=== PATIENT | male | born 1980 | race Caucasian/White ===

== ENCOUNTER → 2016-12-19 | Outpatient (REF) | LOC: ZLAB.WCH 18:11 | DX: Z01.89 Encounter for other specified special examinations (principal) ==

== ENCOUNTER → 2017-03-07 | Outpatient (REF) | LOC: ZLAB.WCH 11:05 | DX: Z01.89 Encounter for other specified special examinations (principal) ==

== ENCOUNTER → 2018-04-03 | Outpatient (REF) | LOC: ZLAB.WCH 16:11 | DX: Z01.89 Encounter for other specified special examinations (principal) ==

== ENCOUNTER → 2018-04-29 | Outpatient (REF) | LOC: ZLAB.WCH 18:22 | DX: Z01.89 Encounter for other specified special examinations (principal) | CPT/HCPCS: G0103 ==

== ENCOUNTER → 2020-09-13 | Outpatient (CLI) | payer BC ==
[~2020-09-13] MED LIST: ALEVE 220MG220 MG PO; KLONOPIN 1MG1 MG PO; PROTONIX 40MG T40 MG PO; PROZAC 10MG10 MG PO
== END ==
LOC: MHCPAIN 08:45
DX: M47.817 Spondylosis without myelopathy or radiculopathy, lumbosacral region (principal); M54.16 Radiculopathy, lumbar region; M96.1 Postlaminectomy syndrome, not elsewhere classified; F17.210 Nicotine dependence, cigarettes, uncomplicated; G89.29 Other chronic pain
CPT/HCPCS: G0463

== ENCOUNTER → 2020-09-16 | Outpatient (CLI) | payer BC | LOC: MHCPAIN 07:44 | DX: M47.817 Spondylosis without myelopathy or radiculopathy, lumbosacral region (principal); M54.17 Radiculopathy, lumbosacral region | CPT/HCPCS: J1100; Q9967 ==

== ENCOUNTER 2020-11-17 09:42 | Inpatient (IN) | payer SELFPAY ==
[~2020-11-17] VITALS: Ht 7.6 cm; Wt 82.3 kg
[2020-11-17] MEDS ORDERED: PROTONIX 40MG T40 MG PO (09:58)
[2020-11-17] MEDS ORDERED: PROZAC 10MG10 MG PO (09:58)
[2020-11-17] MEDS ORDERED: KLONOPIN 1MG1 MG PO (09:58)
[2020-11-17] MEDS ORDERED: ALEVE 220MG220 MG PO (09:59)
[2020-11-17 10:55] LABS: BASO % 0.6 % (0.0-2.0); EOS # 0.3 (0.0-0.7); GRAN # 3.6 (1.4-6.5); GRAN % 56.4 % (42.2-75.2); HEMATOCRIT 45.6 % (42.0-52.0); HEMOGLOBIN 15.8 g/dl (13.5-18.0); LYMPH # 2.1 (1.2-3.4); MEAN CELL VOLUME 88 fl (80.0-100.0); MEAN CORPUSCULAR HEMOGLOBIN 30 pg (27.0-31.0); MEAN CORPUSCULAR HGB CONC 35 g/dl (33.0-37.0); MEAN PLATELET VOLUME 9.4 fl (7.4-10.4); MONO # 0.4 (0.1-0.6); MONO % 6.7 % (1.7-9.3); PLATELET COUNT 247 K/mm3 (130-400); RED BLOOD COUNT 5.19 M/mm3 (4.20-5.60); REDCELL DISTRIBUTION WIDTH-CV 12.3 % (11.5-14.5)
[2020-11-17 11:10] LABS: ALANINE AMINOTRANSFERASE 40 U/L (4-49); ALBUMIN 4.8 gm/dL (3.5-5.0); ALKALINE PHOSPHATASE 65 U/L (50-136); ANION GAP 11 mmol/L (7-16); AST,SGOT 32 U/L (15-37); BILIRUBIN,TOTAL 0.4 mg/dL (0.0-1.0); BLOOD UREA NITROGEN 20 mg/dL (9-20); CALCIUM 9.8 mg/dL (8.4-10.2); CARBON DIOXIDE 23 mmol/L (22-30); CHLORIDE 106 mmol/L (98-107); CREATININE, serum 0.85 (0.66-1.25); GLUCOSE 80 mg/dL (74-106); POTASSIUM 4.1 mmol/L (3.4-5.0); SODIUM 140 mmol/L (137-145); TOTAL PROTEIN 8.5 gm/dL (6.4-8.2)
[2020-11-17 11:13] LABS: STREP SCREEN NEGATIVE
[2020-11-17 11:19] LABS: C-REACTIVE PROTEIN < 0.5 mg/dL (0.0-0.9)
[2020-11-17 11:51] LABS: INR 1.1 (0.8-3.0); PROTHROMBIN TIME 12.7 SECONDS (9.7-12.8)
[2020-11-17 11:53] LABS: PARTIAL THROMBOPLASTIN TIME 35.6 SECONDS (26.0-37.0)
[2020-11-17 13:35] LABS: GLUCOSE,CSF 49 mg/dL (40-70); TOTAL PROTEIN,CSF 53 mg/dL (15-45)
[2020-11-17 14:52] LABS: CSF APPEARANCE CLEAR; CSF COLOR COLORLESS; CSF MONONUCLEAR 100 % (70-100); CSF POLYMORPHONUCLEAR 0 % (0-6); CSF RBC 0 /mm3 (0-0)
[2020-11-17 15:15] LABS: CSF APPEARANCE CLEAR; CSF COLOR COLORLESS; CSF MONONUCLEAR 11 % (70-100); CSF POLYMORPHONUCLEAR 89 % (0-6); CSF RBC 227 /mm3 (0-0)
[2020-11-17 19:26] VITALS: BP 129/77; PULSE 63; TEMP 97.6
[2020-11-17 19:28] VITALS: BP 129/77; PULSE 63; TEMP 97.6
[2020-11-18] VITALS (7 sets, daily range): BP systolic 103–135; BP diastolic 59–91; PULSE 63–82; TEMP 97.6–98.5
[2020-11-18 07:03] LABS: BASO % 0.4 % (0.0-2.0); EOS # 0.4 (0.0-0.7); EOS % 5.1 % (0-4.0); GRAN # 3.9 (1.4-6.5); HEMATOCRIT 43.3 % (42.0-52.0); HEMOGLOBIN 14.7 g/dl (13.5-18.0); LYMPH # 2.2 (1.2-3.4); LYMPH % 30.9 % (20.0-51.0); MEAN CELL VOLUME 90 fl (80.0-100.0); MEAN CORPUSCULAR HEMOGLOBIN 30 pg (27.0-31.0); MEAN CORPUSCULAR HGB CONC 34 g/dl (33.0-37.0); MEAN PLATELET VOLUME 9.7 fl (7.4-10.4); MONO # 0.5 (0.1-0.6); MONO % 7.5 % (1.7-9.3); PLATELET COUNT 224 K/mm3 (130-400); RED BLOOD COUNT 4.84 M/mm3 (4.20-5.60); REDCELL DISTRIBUTION WIDTH-CV 12.2 % (11.5-14.5)
[2020-11-18 07:14] LABS: CALCIUM 8.9 mg/dL (8.4-10.2); CREATININE, serum 0.91 (0.66-1.25); PHOSPHOROUS 4.2 mg/dL (2.5-4.5)
[2020-11-19 03:56] VITALS: BP 118/74; PULSE 67; TEMP 97.8
[2020-11-19 06:28] LABS: BASO % 0.5 % (0.0-2.0); EOS # 0.3 (0.0-0.7); EOS % 4.4 % (0-4.0); GRAN # 3.6 (1.4-6.5); GRAN % 54.1 % (42.2-75.2); HEMATOCRIT 41.5 % (42.0-52.0); HEMOGLOBIN 14.4 g/dl (13.5-18.0); LYMPH # 2.2 (1.2-3.4); MEAN CELL VOLUME 89 fl (80.0-100.0); MEAN CORPUSCULAR HEMOGLOBIN 31 pg (27.0-31.0); MEAN CORPUSCULAR HGB CONC 35 g/dl (33.0-37.0); MEAN PLATELET VOLUME 9.7 fl (7.4-10.4); MONO # 0.5 (0.1-0.6); MONO % 7.8 % (1.7-9.3); PLATELET COUNT 217 K/mm3 (130-400); RED BLOOD COUNT 4.64 M/mm3 (4.20-5.60); REDCELL DISTRIBUTION WIDTH-CV 12.3 % (11.5-14.5)
[2020-11-19 06:47] LABS: CALCIUM 9.3 mg/dL (8.4-10.2); CREATININE, serum 0.88 (0.66-1.25); POTASSIUM 3.9 mmol/L (3.4-5.0)
[2020-11-19 08:02] VITALS: BP 140/77; PULSE 76; TEMP 97.9
== END 2020-11-19 11:25 | disposition home or self-care (01) | DRG 76 ==
LOC: COL.ER 09:42 → MEDICAL 13:06
PROVIDERS: Emergency Medicine; Nurse Practitioner Primary Care; Physician Assistant; ADMIT Emergency Medicine
PROC: 009U3ZX Drainage of Spinal Canal, Percutaneous Approach, Diagnostic (ICD-10-PCS; principal; 2020-11-17)
DX: A87.9 Viral meningitis, unspecified (principal); F41.9 Anxiety disorder, unspecified; K21.9 Gastro-esophageal reflux disease without esophagitis; M54.2 Cervicalgia; R53.83 Other fatigue; R50.9 Fever, unspecified; M19.90 Unspecified osteoarthritis, unspecified site; F17.210 Nicotine dependence, cigarettes, uncomplicated; Z90.49 Acquired absence of other specified parts of digestive tract
CPT/HCPCS: 99222-AI; 99223-AI; 99233-AI; 99239; J0133; J0290; J0696; J3370; J7050

== ENCOUNTER → 2020-12-02 | Outpatient (REF) | LOC: ZLAB.WCH 18:03 | DX: Z01.89 Encounter for other specified special examinations (principal) ==

== ENCOUNTER 2021-05-06 14:53 | Emergency (ER) | payer OTHER ==
[~2021-05-06] VITALS: Ht 195.6 cm; Wt 92.3 kg
[2021-05-06 15:44] VITALS: BP 146/89; PULSE 55; TEMP 98.2
== END 2021-05-06 16:15 | disposition left against medical advice (07) ==
LOC: COL.ER 14:53
DX: G97.1 Other reaction to spinal and lumbar puncture (principal); R51.9 Headache, unspecified; F41.9 Anxiety disorder, unspecified; F32.A Depression, unspecified; K21.9 Gastro-esophageal reflux disease without esophagitis; Z79.899 Other long term (current) drug therapy

== ENCOUNTER 2023-08-26 18:33 | Emergency (ER) | payer BC ==
[~2023-08-26] VITALS: Ht 195.6 cm; Wt 90.9 kg
[~2023-08-26 18:33] MED LIST changes: +FLEXERIL 1010 MG/TAB PO
[2023-08-26 18:39] VITALS: TEMP 98.3
[2023-08-26] MEDS ORDERED: NS 1,000 ML IV ONE (18:45)
[2023-08-26] MEDS ORDERED: Ketorolac 30 MG/ML VIAL IV ONE (19:00)
[2023-08-26] MEDS ORDERED: Ondansetron 4 MG/2 ML VIAL IV ONE (19:00)
[2023-08-26 19:01] LABS: BASO % 0.4 % (0.0-2.0); EOS # 0.2 K/mm3 (0.0-0.7); EOS % 2.3 % (0.0-4.0); GRAN # 3.9 K/mm3 (1.4-6.5); GRAN % 49.1 % (42.2-75.2); HEMATOCRIT 43.6 % (42.0-52.0); HEMOGLOBIN 14.9 g/dl (13.5-18.0); LYMPH # 3.1 K/mm3 (1.2-3.4); LYMPH % 39.2 % (20.0-51.0); MEAN CELL VOLUME 90 fl (80.0-100.0); MEAN CORPUSCULAR HEMOGLOBIN 31 pg (27-31); MEAN CORPUSCULAR HGB CONC 34 g/dl (33.0-37.0); MEAN PLATELET VOLUME 8.7 fl (7.4-10.4); MONO # 0.7 K/mm3 (0.1-0.6); MONO % 8.4 % (1.7-9.3); PLATELET COUNT 387 K/mm3 (130-400); RED BLOOD COUNT 4.85 M/mm3 (4.20-5.60); REDCELL DISTRIBUTION WIDTH-CV 11.9 % (11.5-14.5)
[2023-08-26 19:10] LABS: COLLECTION METHOD CLEAN CATCH
[2023-08-26 19:15] LABS: PH 6.5 (5.0-8.5); URINE APPEARANCE CLEAR (CLEAR/HAZY); URINE BLOOD NEGATIVE (NEGATIVE); URINE COLOR YELLOW (YELLOW); URINE GLUCOSE NEGATIVE (NEGATIVE); URINE KETONE NEGATIVE (NEGATIVE); URINE NITRATE NEGATIVE (NEGATIVE); URINE PROTEIN(semi-quant) NEGATIVE (NEGATIVE); URINE UROBILINOGEN 0.2 E.U/dL (0.2-1.0)
[2023-08-26 19:18] LABS: ALBUMIN 4.1 gm/dL (3.5-5.0); BILIRUBIN,TOTAL 0.3 mg/dL (0.2-1.2); CALCIUM 9.8 mg/dL (8.4-10.2); CREATININE, serum 1.11 mg/dL (0.72-1.25); POTASSIUM 3.7 mmol/L (3.5-4.5); TOTAL PROTEIN 7.5 gm/dL (6.2-8.1)
[2023-08-26] MEDS ORDERED: Dicyclomine 10 MG/ML 2 ML VIAL IM ONE (20:00)
[2023-08-26] MEDS ORDERED: diphenhydrAMINE 50 MG/ML 1 ML VIAL IV ONE (20:00)
[2023-08-26] MEDS ORDERED: BENTYL 20MG20 MG/TAB PO (20:19)
[2023-08-26] MEDS ORDERED: ZOFRAN 4MG T4 MG/TAB PO (20:19)
[2023-08-26] MEDS ORDERED: DULCOLAX STOOL100 MG PO (20:19)
[2023-08-26 20:26] VITALS: BP 124/77; PULSE 64
== END 2023-08-26 20:25 | disposition home or self-care (01) ==
LOC: COL.ER 18:33
PROVIDERS: Emergency Medicine
DX: K59.00 Constipation, unspecified (principal); K60.2 Anal fissure, unspecified; K64.8 Other hemorrhoids; R51.9 Headache, unspecified; R11.0 Nausea; F17.210 Nicotine dependence, cigarettes, uncomplicated; Z90.49 Acquired absence of other specified parts of digestive tract
CPT/HCPCS: J0500; J0780; J1200; J1885; J7030